=== PATIENT | female | born 1980 | race Caucasian/White ===

== ENCOUNTER 2017-02-05 14:07 | Emergency (ER) | payer OTHER ==
[~2017-02-05] VITALS: Wt 90.0 kg
[~2017-02-05 14:07] MED LIST: ALPR0.5T PO; BUPR-34 PO; FERR-55 PO; HYDR-1666 PO; QUET100T PO
[2017-02-05] MEDS ORDERED: ALPRAZOLAM 1 MG TAB PO STA (15:02)
--- NOTE | 2017-02-05 15:12 | ERD ---
ER Documentation Chief Complaint Date/Time DATE: 02/05/17 TIME: 15:08 Chief Complaint NUMBNESS AND TINGLING FROM ANXIETY. HX OF SAME NOT BETTER WITH MEDICATIONS HPI This is a 36 year old female with history of anxiety presenting to the emergency department bringing her son in for a cough complaining of anxiety exacerbation. Patient states that she has been seeing her primary care physician for anxiety in which they have placed her on Paxil 2 months ago. Patient states that she took Xanax 1 mg 3 times a day however they reduced her dose to 2 times a day. Patient states that she is having anxiety symptoms, numbness tingling of her hands and feet. Patient presents with her son who has been admitted to the hospital earlier this month and that is why she is also expressing anxiety. ROS All systems reviewed and are negative except as per history of present illness. Medications Home Meds Reported Medications Ferrous Sulfate* (Ferrous Sulfate*) 325 Mg Tablet, 325 MG PO DAILY 12/06/12 Hydrocodone Bit/Acetaminophen (Vicodin 5/500 Tablet) 1 Tab Tablet, PO DAILY 12/03/12 Quetiapine Fumarate* (Seroquel*) 100 Mg Tablet, PO HS 12/03/12 Bupropion Hcl* (Wellbutrin SR*) 150 Mg Tablet.sa, PO DAILY 12/03/12 Alprazolam* (Xanax*) 0.5 Mg Tab, PO BID 12/03/12 Allergies Allergies: Coded Allergies: hydromorphone HCl (Verified Allergy, HIVES, 12/06/12) ketorolac tromethamine (Verified Allergy, 12/03/12) itch meperidine HCl (Verified Allergy, 12/03/12) hives morphine (Verified Allergy, 12/03/12) itch sumatriptan (Verified Allergy, 12/03/12) itch tramadol HCl (Verified Allergy, HIVES, 12/06/12) PMhx/Soc History of Surgery: Yes (GASTRIC BYPASS) Anesthesia Reaction: No Hx Neurological Disorder: No Hx Respiratory Disorders: No Hx Cardiac Disorders: No Hx Psychiatric Problems: No Hx Miscellaneous Medical Probl: No Hx Alcohol Use: No Hx Substance Use: No Hx Tobacco Use: No Physical Exam Vitals Vital Signs Date Time Temp Pulse Resp B/P Pulse Ox O2 Delivery O2 Flow Rate FiO2 02/05/17 14:15 98.1 112 20 142/98 99 Physical Exam Const: Well-developed well-nourished no acute distress Head: Atraumatic Eyes: Normal Conjunctiva ENT: Normal External Ears, Nose and Mouth. Neck: Full range of motion..~ No meningismus. Resp: Clear to auscultation bilaterally Cardio: Regular rate and tachycardia, no murmurs Abd: Soft, non tender, non distended. Normal bowel sounds Skin: No petechiae or rashes Back: No midline or flank tenderness Ext: No cyanosis, or edema Neur: Awake and alert Psych: Normal Mood and Affect Results 24 hrs Current Medications Medications (Trade) Dose Ordered Sig/Kavitha Route PRN Reason Start Time Stop Time Status Last Admin Dose Admin Alprazolam (Xanax) 1 mg ONCE STAT PO 02/05/17 15:02 02/05/17 15:03 DC Procedures/MDM This is a 36 year old female with history of anxiety presenting to the emergency department bringing her son in for a cough complaining of anxiety exacerbation. Patient states that she has been seeing her primary care physician for anxiety in which they have placed her on Paxil 2 months ago. Patient states that she took Xanax 1 mg 3 times a day however they reduced her dose to 2 times a day. Patient presents with her son who has been admitted to the hospital earlier this month and that is why she is expressing anxiety. In the ed, patient was given 1mg Xanax and was feeling better in symptoms. Patient is suitable to continue to follow-up with her primary care physician and psychiatrist for further action management. Patient has stable vital signs and neurovascular intact for discharge. Discussed return to the ER for any worsening symptoms she understands and agrees with this plan. Departure Diagnosis: Primary Impression: Anxiety Condition: Stable Patient Instructions: Your Body's Response to Anxiety Referrals: CINTHYA SHRESTHA (PCP) Additional Instructions: FOLLOW UP WITH YOUR PRIMARY CARE PHYSICIAN TOMORROW.Return to this facility if you are not improving as expected. Take all medicines as directed. Return to this facility if you are not improving as expected. FRANCIE ESPINOSA PA-C Feb 05, 2017 15:11
[2017-02-05 16:24] VITALS: BP 133/68; PULSE 77; RESP 18
== END 2017-02-05 16:26 | disposition home or self-care (01) ==
LOC: FTE 14:07
DX: F41.9 Anxiety disorder, unspecified (principal)
CPT/HCPCS: Z7502; Z7610; 99283

== ENCOUNTER 2017-02-07 17:17 | Emergency (ER) | payer OTHER ==
[~2017-02-07] VITALS: Ht 152.4 cm; Wt 93.0 kg
[2017-02-07 17:20] VITALS: Ht 152.4 cm; Wt 93.0 kg
[2017-02-07] MEDS ORDERED: AMO500 PO (17:32)
[2017-02-07] MEDS ORDERED: HYDR-906 PO ×2 (17:32→17:38)
--- NOTE | 2017-02-07 17:56 | ERD ---
ER Documentation Chief Complaint Date/Time DATE: 02/07/17 TIME: 17:51 Chief Complaint 810 left side lower tooth pain x today HPI This is a 36-year-old female presenting to the emergency department complaining of dental pain in the left lower molar region since the day when her crown broke off a piece of her tooth. Patient states that she has called the dentist however they will be able to see her until and have told her to come to the emergency department. Patient states that pain is 10 out of 10 and worse with air. She has not taken any medications today. She denies any fevers. ROS All systems reviewed and are negative except as per history of present illness. Medications Home Meds Active Scripts Hydrocodone/Acetaminophen ([place]heim 5-325 Tablet) 1 Each Tablet, 1-2 TAB PO Q4 Y for PAIN, #30 TAB Prov:FRANCIE ESPINOSA PA-C 02/07/17 Amoxicillin* (Amoxicillin*) 500 Mg Cap, 500 MG PO BID for 10 Days, CAP Prov:FRANCIE ESPINOSA PA-C 02/07/17 Reported Medications Ferrous Sulfate* (Ferrous Sulfate*) 325 Mg Tablet, 325 MG PO DAILY 12/06/12 Hydrocodone Bit/Acetaminophen (Vicodin 5/500 Tablet) 1 Tab Tablet, PO DAILY 12/03/12 Quetiapine Fumarate* (Seroquel*) 100 Mg Tablet, PO HS 12/03/12 Bupropion Hcl* (Wellbutrin SR*) 150 Mg Tablet.sa, PO DAILY 12/03/12 Alprazolam* (Xanax*) 0.5 Mg Tab, PO BID 12/03/12 Allergies Allergies: Coded Allergies: hydromorphone HCl (Verified Allergy, HIVES, 12/06/12) ketorolac tromethamine (Verified Allergy, 12/03/12) itch meperidine HCl (Verified Allergy, 12/03/12) hives morphine (Verified Allergy, 12/03/12) itch sumatriptan (Verified Allergy, 12/03/12) itch tramadol HCl (Verified Allergy, HIVES, 12/06/12) PMhx/Soc History of Surgery: Yes (GASTRIC BYPASS) Anesthesia Reaction: No Hx Neurological Disorder: No Hx Respiratory Disorders: No Hx Cardiac Disorders: No Hx Psychiatric Problems: No Hx Miscellaneous Medical Probl: No Hx Alcohol Use: No Hx Substance Use: No Hx Tobacco Use: No Physical Exam Vitals Vital Signs Date Time Temp Pulse Resp B/P Pulse Ox O2 Delivery O2 Flow Rate FiO2 02/07/17 17:20 97.7 117 18 129/95 97 Physical Exam Const: Well-developed well-nourished no acute distress Head: Atraumatic Eyes: Normal Conjunctiva ENT: Second or third molar has a vertical fracture through the crown and root Neck: Full range of motion..~ No meningismus. Resp: Clear to auscultation bilaterally Cardio: Regular rate and rhythm, no murmurs Abd: Soft, non tender, non distended. Normal bowel sounds Skin: No petechiae or rashes Back: No midline or flank tenderness Ext: No cyanosis, or edema Neur: Awake and alert Psych: Normal Mood and Affect Procedures/MDM This is a 36-year-old female presenting to the emergency room with dental pain in the #17 or 16 left lower molar likely due to a tooth fracture through the root from a broken crown. There was no evidence of any dental abscess or deep space infection at this time. Patient is suitable for discharge to follow-up with the dentist in the next couple days. Patient will need a tooth extraction with her dentist. Patient was given a prescription for [place]heim for pain and amoxicillin to prevent any infection. I discussed with her to get dental cement [id number] at the pharmacy protected to until she is able to follow -up with her dentist. Patient has stable vital signs for discharge. Discussed return to the ER for any worsening signs or symptoms. She understands and agrees with this plan Departure Diagnosis: Primary Impression: Pain, dental Additional Impression: Broken tooth Condition: Stable Patient Instructions: Dental Pain Referrals: [facility] ([facility] walk in clinic) Additional Instructions: FOLLOW UP WITH YOUR DENTIST TOMORROW.Return to this facility if you are not improving as expected. Take all medicines as directed. Return to this facility if you are not improving as expected. You have been given a medicine which may cause drowsiness.DO NOT DRIVE OR OPERATE DANGEROUS MACHINERY while taking this medicine! FRANCIE ESPINOSA PA-C Feb 07, 2017 17:56
== END 2017-02-07 17:35 | disposition home or self-care (01) ==
LOC: FTE 17:17 → E/R 17:35
DX: K08.89 Other specified disorders of teeth and supporting structures (principal); S02.5XXA Fracture of tooth (traumatic), initial encounter for closed fracture; X58.XXXA Exposure to other specified factors, initial encounter; Y92.9 Unspecified place or not applicable
CPT/HCPCS: 99284

== ENCOUNTER 2017-03-14 07:03 | Emergency (ER) | payer OTHER ==
[~2017-03-14] VITALS: Ht 160 cm; Wt 89.0 kg
[~2017-03-14 07:03] MED LIST changes: +AMO500 PO; +HYDR-906 PO
[2017-03-14 07:05] VITALS: Ht 160 cm; Wt 89.0 kg
[2017-03-14] MEDS ORDERED: BEN25 PO (07:45)
[2017-03-14] MEDS ORDERED: LORA1TAB PO (07:45)
--- NOTE | 2017-03-14 07:45 | ERD ---
ER Documentation Chief Complaint Date/Time DATE: 03/14/17 TIME: 07:37 Chief Complaint baCK PAIN,ANXIETY ON MEDS HPI 36-year-old female who presented emergency department for anxiety. She also added that she has hives and itchiness to her chest. Reports that these hives and itchiness appears whenever she has anxiety and panic attack. Denies headache, loss of consciousness, dizziness, blurry vision, changes in vision, photophobia, facial pain, ear pain, throat pain, difficulty swallowing, neck pain, shoulder pain, chest pain, cough, hemoptysis, abdominal pain, back pain, loss of appetite, nausea, vomiting, hematochezia, diarrhea, constipation, urinary symptoms, , the possibility of being , bladder and bowel incontinences, extremity weakness, extremity tenderness, numbness or tingling sensation, difficulty walking, recent travel, recent exposure to illness, recent antibiotic use in the last 3 months, fever, chills. LMP: Stated that it was 4 months ago. with 3 miscarriages. Allergy: Reviewed. Past medical history of anxiety, lupus, fibromyalgia, depression. Surgical history of tubal ligation. Medication: Tylenol 3, Ativan, Xanax. Social history not working at this time. Denies smoking, use of alcohol, use of illegal drugs. ROS All systems reviewed and are negative except as per history of present illness. Medications Home Meds Active Scripts Diphenhydramine Hcl* (Benadryl*) 25 Mg Cap, 25 MG PO Q6, #30 CAP Prov:PASILABAN,KLAR F 03/14/17 Lorazepam* (Lorazepam*) 1 Mg Tablet, 1 MG PO Q8, #10 TAB Prov:PASILABAN,KLAR F 03/14/17 Hydrocodone/Acetaminophen (Wells 5-325 Tablet) 1 Each Tablet, 1-2 TAB PO Q4 Y for PAIN, #30 TAB Prov:FRANCIE ESPINOSA PA-C 02/07/17 Amoxicillin* (Amoxicillin*) 500 Mg Cap, 500 MG PO BID for 10 Days, CAP Prov:FRANCIE ESPINOSA PA-C 02/07/17 Reported Medications Ferrous Sulfate* (Ferrous Sulfate*) 325 Mg Tablet, 325 MG PO DAILY 12/06/12 Hydrocodone Bit/Acetaminophen (Vicodin 5/500 Tablet) 1 Tab Tablet, PO DAILY 12/03/12 Quetiapine Fumarate* (Seroquel*) 100 Mg Tablet, PO HS 12/03/12 Bupropion Hcl* (Wellbutrin SR*) 150 Mg Tablet.sa, PO DAILY 12/03/12 Alprazolam* (Xanax*) 0.5 Mg Tab, PO BID 12/03/12 Allergies Allergies: Coded Allergies: hydromorphone HCl (Verified Allergy, HIVES, 12/06/12) ketorolac tromethamine (Verified Allergy, 12/03/12) itch meperidine HCl (Verified Allergy, 12/03/12) hives morphine (Verified Allergy, 12/03/12) itch sumatriptan (Verified Allergy, 12/03/12) itch tramadol HCl (Verified Allergy, HIVES, 12/06/12) PMhx/Soc History of Surgery: Yes (GASTRIC BYPASS) Anesthesia Reaction: No Hx Neurological Disorder: No Hx Respiratory Disorders: No Hx Cardiac Disorders: No Hx Psychiatric Problems: No Hx Miscellaneous Medical Probl: No Hx Alcohol Use: No Hx Substance Use: No Hx Tobacco Use: No Physical Exam Vitals Vital Signs Date Time Temp Pulse Resp B/P Pulse Ox O2 Delivery O2 Flow Rate FiO2 03/14/17 07:05 98.1 89 18 149/89 99 Physical Exam CONSTITUTIONAL: Well-appearing; well-nourished. Appears anxious. HEAD: Normocephalic; atraumatic. EYES: Conjunctiva clear, sclera non-icteric, EOM intact. PERRL Ears: Hearing intact. EACs clear, TMs non-bulging, non-inflamed, translucent & mobile, ossicles normal appearance, No obstructions, no erythema, no discharges Nose: No obstructions. No polyps. No external lesions. Mucosa non-inflamed. No external lesions, septum and turbinates normal. No rhinorrhea. No discharges. Frontal sinus is non-tender to palpation. Maxillary sinus is non-tender to palpation. MOUTH: Moist mucous membranes, no lesion, no obstructions, no vesicles, no thrush, patent airway Throat: Uvula in midline. Right tonsil is +1 with no erythema, no exudate. Left tonsil is +1 with no erythema, no exudate. Tolerating secretions well. Good gag reflex. Patent airway. Neck: Supple, without lesions, bruits, or adenopathy. No mass. Thyroid non- enlarged and non-tender to palpation. CHEST: Symmetrical chest. Respirations even and not labored. No retractions noted. CARDIOVASCULAR: Normal S1, S2. RRR. No murmurs, gallops. RESPIRATORY: Normal chest excursion with respiration; breath sounds clear and equal bilaterally; no wheezes, rhonchi, or rales. Breathing even and unlabored. Speaking in clear, full, and complete sentences w/ ease. ABDOMEN: Normal bowel sounds normal. Soft, round, non-distended, non-guarding, no tenderness, no rebound, no organomegaly, no masses, no pulsating abdominal mass. No hernia. No peritoneal signs. : No CVA tenderness. BACK: Symmetrical shoulder. Spine is midline without deformity, tenderness. No evidence of trauma or deformity. PELVIS: Stable pelvis. No evidence of trauma or deformity. MUSCULOSKELETAL: Normal gait and station. No misalignment, asymmetry, crepitation, defects, tenderness, masses, effusions, decreased range of motion, instability, atrophy or abnormal strength or tone in the head, neck, spine, ribs , pelvis or extremities. No calf tenderness. NEUROVASCULAR: Distal pulses are present. Pedal pulse are present, equal, and normal. Capillary refills are < 2 seconds. NEUROLOGIC: Alert and oriented x4. Speaks full and clear sentences. Cranial Nerves II-XII normal. Sensation to pain, touch, and proprioception normal. Grossly unremarkable. No neurologic deficits. Romberg test is negative. PSYCHOLOGICAL: The patients mood and manner are appropriate. No hallucinations , delusions. Not SI. Not HI. Has the capacity to decide for self SKIN: Normal for age and ethnicity; warm; dry; good turgor; no apparent lesions or exudates. No rashes. Noted hives (patient stated that these hives is itchy and it disappears whenever she is anxious) to chest. Results 24 hrs Current Medications Medications (Trade) Dose Ordered Sig/Kavitha Route PRN Reason Start Time Stop Time Status Last Admin Dose Admin Diphenhydramine HCl (Benadryl) 25 mg ONCE ONCE IM 03/14/17 08:00 03/14/17 08:01 DC 03/14/17 07:50 Lorazepam (Ativan) 2 mg ONCE ONCE PO 03/14/17 08:00 03/14/17 08:01 DC 03/14/17 07:50 Procedures/MDM Examination: Please see physical examination Disease process, medical treatment was explained to the patient and family member. They verbalized understanding and agreed with the diagnostic tests, medical treatment, and follow-up care. Treatment: Benadryl. Ativan. Re-evaluation: Denies headache, dizziness, blurred vision, neck pain, shoulder pain, chest pain, back pain, abdominal pain, nausea, vomiting. Tolerating secretions. No difficulty swallowing. No episode of emesis in the emergency department. Hives to chest area has disappeared. Respirations even and unlabored. Lung sounds decreased auscultation. No neurological deficit. Not suicidal. Not homicidal. Has the capacity to decide for herself. Reports that she has good support system at home. Consultation: None. Differential diagnosis: Anxiety versus allergic reaction Medical decision makin-year-old female who presented emergency department for anxiety. She also added that she has hives and itchiness to her chest. Reports that these hives and itchiness appears whenever she has anxiety and panic attack. Patient's complaint, patient's history about her complaint, my physical findings, my reevaluation are consistent with my final diagnosis of anxiety that has resolved. Medications prescribed are the following: Ativan. Benadryl. Patient and family member are made aware of the side effects and adverse reactions of the medications prescribed. Instructed on when to seek emergent and medical attention in case allergic/anaphylactic reactions or severe side effects and or adverse reactions to medications. Patient and family member verbalized understanding. Patient instructed Instructed to follow-up with his PCP in 24-48 hours. Instructed to Call 911 for chest pain, shortness of breath. Advised to come back here in ED as soon as possible for severity of symptoms which includes but not limited to: any new symptoms; shortness of breath/difficulty of breathing; cardiovascular changes; severe gastrointestinal symptoms; signs and symptoms of bleeding and or infection; signs of compartment syndrome/neurovascular changes; neurological changes/deficits. Patient and family member verbalized understanding. Upon discharge, patient is alert and oriented x 4, speaks full and clear sentences, denies pain, has no neurological deficits, has no neurovascular deficits, difficulty of breathing. Breathing even and unlabored. Lung sounds are clear to auscultation. Not in distress. Denies auditory/visual hallucinations/delusions. Not suicidal. Not homicidal. Has the capacity to decide for herself. Stated that she has good support system at home. Appears comfortable. Ambulatory with steady gait. Appears satisfied with care provided here in ED. Departure Diagnosis: Primary Impression: Anxiety Condition: Stable Additional Instructions: Patient instructed Instructed to follow-up with his PCP in 24-48 hours. Instructed to Call 911 for chest pain, shortness of breath. Advised to come back here in ED as soon as possible for severity of symptoms which includes but not limited to: any new symptoms; shortness of breath/difficulty of breathing; cardiovascular changes; severe gastrointestinal symptoms; signs and symptoms of bleeding and or infection; signs of compartment syndrome/neurovascular changes; neurological changes/deficits. Patient and family member verbalized understanding. DILCIA KELLY March 14, 2017 07:45
[2017-03-14] MEDS ORDERED: DIPHENHYDRAMINE 50 MG INJ IM ONE (08:00)
[2017-03-14] MEDS ORDERED: LORAZEPAM 1 MG TAB PO ONE (08:00)
[2017-03-14] MEDS ORDERED: IBUP800T25 PO (22:16)
[2017-03-14] MEDS ORDERED: CYCL-319 PO (22:16)
== END 2017-03-14 08:22 | disposition home or self-care (01) ==
LOC: FTE 07:03
DX: F41.9 Anxiety disorder, unspecified (principal)
CPT/HCPCS: 96372; J1200; Z7502; Z7610

== ENCOUNTER 2017-03-14 18:55 | Emergency (ER) | payer OTHER ==
[~2017-03-14] VITALS: Ht 152.4 cm; Wt 91.5 kg
[~2017-03-14 18:55] MED LIST changes: +BEN25 PO; +LORA1TAB PO
[2017-03-14 19:12] VITALS: Ht 152.4 cm; Wt 91.5 kg
[2017-03-14] MEDS ORDERED: BUPIVACAINE 0.25% (MPF) 10 ML 10 ML VIAL INJ ONE (20:00)
[2017-03-14] MEDS ORDERED: HYDROCODONE/APAP (5/325) TAB PO ONE ×2 (20:00→23:00)
[2017-03-14] MEDS ORDERED: IBUP800T25 PO (22:16)
[2017-03-14] MEDS ORDERED: CYCL-319 PO (22:16)
[2017-03-14 22:48] VITALS: BP 134/89; PULSE 113; RESP 16; TEMP 98.2
--- NOTE | 2017-03-15 01:51 | ERD ---
ER Documentation Chief Complaint Date/Time DATE: 03/15/17 TIME: 01:44 Chief Complaint Back pain x2 days. Came in last 2 days ago HPI 36-year-old female is complaining of right lower back pain 2 days. Pain is sharp and constant, does not radiate. Patient stated that she has fibromyalgia and lupus, she had pain like this in the past, usually better after taking Paxton. Her PCP has recently switch her pain medication from Paxton to Tylenol No. 3, and he had not helped. Denies recent injury or falls. Denies fever or chills. Denies saddle paresthesia. Denies bowel or bladder dysfunction. ROS All systems reviewed and are negative except as per history of present illness. Medications Home Meds Active Scripts Cyclobenzaprine Hcl* (Cyclobenzaprine Hcl*) 10 Mg Tablet, 10 MG PO TID, #15 TAB Prov:FRANCISCO CAMPBELL. REAL ESTATE DEVELOPMENT MANAGER 03/14/17 Ibuprofen* (Motrin*) 800 Mg Tab, 800 MG PO Q6H Y for PAIN AND OR ELEVATED TEMP, #30 TAB Prov:FRANCISCO CAMPBELL. [employer]STATE DEVELOPMENT MANAGER 03/14/17 Diphenhydramine Hcl* (Benadryl*) 25 Mg Cap, 25 MG PO Q6, #30 CAP Prov:PASILABANEDIAR F 03/14/17 Lorazepam* (Lorazepam*) 1 Mg Tablet, 1 MG PO Q8, #10 TAB Prov:PASILABAN,KLAR F 03/14/17 Hydrocodone/Acetaminophen (Paxton 5-325 Tablet) 1 Each Tablet, 1-2 TAB PO Q4 Y for PAIN, #30 TAB Prov:FRANCIE ESPINOSA PA-C 02/07/17 Amoxicillin* (Amoxicillin*) 500 Mg Cap, 500 MG PO BID for 10 Days, CAP Prov:FRANCIE ESPINOSA PA-C 02/07/17 Reported Medications Ferrous Sulfate* (Ferrous Sulfate*) 325 Mg Tablet, 325 MG PO DAILY 12/06/12 Hydrocodone Bit/Acetaminophen (Vicodin 5/500 Tablet) 1 Tab Tablet, PO DAILY 12/03/12 Quetiapine Fumarate* (Seroquel*) 100 Mg Tablet, PO HS 12/03/12 Bupropion Hcl* (Wellbutrin SR*) 150 Mg Tablet.sa, PO DAILY 12/03/12 Alprazolam* (Xanax*) 0.5 Mg Tab, PO BID 12/03/12 Allergies Allergies: Coded Allergies: hydromorphone HCl (Verified Allergy, Unknown, HIVES, 03/14/17) ketorolac tromethamine (Verified Allergy, Unknown, 03/14/17) itch meperidine HCl (Verified Allergy, Unknown, 03/14/17) hives morphine (Verified Allergy, Unknown, 03/14/17) itch sumatriptan (Verified Allergy, Unknown, 03/14/17) itch tramadol HCl (Verified Allergy, Unknown, HIVES, 03/14/17) PMhx/Soc Medical and Surgical Hx: pt denies Medical Hx History of Surgery: Yes (GASTRIC BYPASS) Anesthesia Reaction: No Hx Neurological Disorder: No Hx Respiratory Disorders: No Hx Cardiac Disorders: No Hx Psychiatric Problems: No Hx Miscellaneous Medical Probl: No Hx Alcohol Use: No Hx Substance Use: No Hx Tobacco Use: No Smoking Status: Never smoker Physical Exam Vitals Vital Signs Date Time Temp Pulse Resp B/P Pulse Ox O2 Delivery O2 Flow Rate FiO2 03/14/17 22:48 98.2 113 16 134/89 97 Room Air 03/14/17 19:12 99.1 118 20 124/81 96 Physical Exam General: Well-developed, well-nourished, conscious and coherent, in no distress Skin: Warm and dry without rash, good texture and turgor Head: Normocephalic without evidence of trauma Eyes: Sclera and conjunctivae normal; pupils equal, round, and reactive to light; extraocular movements are intact Neck: Supple without meningismus or adenopathy. Carotids are equal. Trachea midline. No bruits or JVD Chest: Normal AP diameter. Good expansion without retractions. Nontender. Lungs are clear to auscultate bilaterally with good tidal volume Heart: Regular rate and rhythm. No murmur, rub, or gallops heard Abdomen: Soft and nontender without masses, guarding, or rebound. Bowel sounds are active. No hepatosplenomegaly Back: Without spinal or CVA tenderness. Muscle spasm noted in the right lumbar region. Pelvis: Nontender to palpation and stable to compression Extremities: Full range of motion. Good strength bilaterally. No clubbing, cyanosis, or edema. Peripheral pulses are intact. Sensation intact Neuro: Alert and oriented 4, GCS 15. Cranial nerves grossly intact. Motor and sensory exams nonfocal. Moves all extremities. Speech clear. Gait normal. No saddle paresthesia. Results 24 hrs Current Medications Medications (Trade) Dose Ordered Sig/Kavitha Route PRN Reason Start Time Stop Time Status Last Admin Dose Admin Bupivacaine HCl (Marcaine 0.25% (Mpf) 10 ml) 10 ml ONCE ONCE INJ 03/14/17 20:00 03/14/17 20:01 DC Acetaminophen/ Hydrocodone Bitart (Paxton (5/325)) 1 tab ONCE ONCE PO 03/14/17 20:00 03/14/17 20:01 DC 03/14/17 20:07 Acetaminophen/ Hydrocodone Bitart (Paxton (5/325)) 1 tab ONCE ONCE PO 03/14/17 23:00 03/14/17 23:00 DC 03/14/17 22:44 Procedures/MDM Well-appearing 36-year-old female presented ED with right lower back pain 2 days. Paxton 5/325 given to the patient in the ED for pain. In addition, patient was also given trigger point injection in the site of muscle spasm. Patient complaining of no improvement after trigger point injection, requesting additional Paxton. Another dose of Paxton 5/325 given to the patient. Patient initially requests prescription of Paxton. I explained to the patient cannot provide her with Paxton prescription as her pain is chronic in nature. She will need to follow-up with her PCP for prescription of chronic pain medications. Patient is pleasant and agreeable. However her frequent requests of pain medication is somewhat suspicious for narcotic seeking. Procedure note: Trigger point injection Trigger point injection performed by me. 10 mL of bupivacaine is injected into right lumbar region. Total number muscle groups injected: 1. Patient appears well, stable for discharge and outpatient management. Medical decision making shared with patient and family. Education provided to patient and family. Patient and family expressed understanding of the plan. Medications on discharge: Ibuprofen, Flexeril. Follow-up: Primary care provider in 2-3 days or return to ED if worse. Departure Diagnosis: Primary Impression: Back spasm Condition: Good Patient Instructions: Back Spasm, No Trauma Additional Instructions: Call your primary care doctor TOMORROW for an appointment during the next 2-3 days.See the doctor sooner or return here if your condition worsens before your appointment time. FRANCISCO CAMPBELL NP March 15, 2017 01:51
== END 2017-03-14 22:50 | disposition home or self-care (01) ==
LOC: FTE 18:55
DX: M62.830 Muscle spasm of back (principal)
CPT/HCPCS: 20552; Z7610

== ENCOUNTER 2017-08-03 09:49 | Emergency (ER) | payer OTHER ==
[~2017-08-03] VITALS: Ht 157.5 cm; Wt 78.0 kg
[~2017-08-03 09:49] MED LIST changes: -AMO500 PO; +AMOX500C2 PO; +CYCL-319 PO; +IBUP800T25 PO
[2017-08-03 09:51] VITALS: Ht 157.5 cm; Wt 78.0 kg
--- NOTE | 2017-08-03 10:58 | ERD ---
ER Documentation Chief Complaint Date/Time DATE: 08/03/17 TIME: 10:49 Chief Complaint reported flair of fibromyalgia, has leg pains HPI 36-year-old female with history of fibromyalgia presents to the emergency department with her complaining of 5 days of worsening of the symptoms, described as pins and needles on bilateral soles with a warmth sensation. The patient is status that she has been under a lot of stress because she was forced to move about from the current place and believes that this anxiety is causing a flare up of her fibromyalgia. She is currently their primary care provider management, her next appointment is in 2 weeks.Denies fever chills or any other constitutional symptoms. No recent history of traveling the patient is not taking hormonal replacement therapy. No weakness no rashes ROS All systems reviewed and are negative except as per history of present illness. Medications Home Meds Active Scripts Hydrocodone/Acetaminophen ([place] 5-325 Tablet) 1 Each Tablet, 1 TAB PO Q6H Y for PAIN for 4 Days, #16 TAB Prov:CELINA MICHAEL MD 08/03/17 Cyclobenzaprine Hcl* (Cyclobenzaprine Hcl*) 10 Mg Tablet, 10 MG PO TID, #15 TAB Prov:FRANCISCO CAMPBELL. FAMILY NURSE 03/14/17 Ibuprofen* (Motrin*) 800 Mg Tab, 800 MG PO Q6H Y for PAIN AND OR ELEVATED TEMP, #30 TAB Prov:FRANCISCO CAMPBELL. FAMILY NURSE 03/14/17 Diphenhydramine Hcl* (Benadryl*) 25 Mg Cap, 25 MG PO Q6, #30 CAP Prov:PASILABANEDIAR F 03/14/17 Lorazepam* (Lorazepam*) 1 Mg Tablet, 1 MG PO Q8, #10 TAB Prov:ALLAILAEDI LEZAMAAR F 03/14/17 Hydrocodone/Acetaminophen ([place] 5-325 Tablet) 1 Each Tablet, 1-2 TAB PO Q4 Y for PAIN, #30 TAB Prov:FRANCIE ESPINOSA PA-C 02/07/17 Amoxicillin* (Amoxicillin*) 500 Mg Cap, 500 MG PO BID for 10 Days, CAP Prov:FRANCIE ESPINOSA PA-C 02/07/17 Reported Medications Ferrous Sulfate* (Ferrous Sulfate*) 325 Mg Tablet, 325 MG PO DAILY 12/06/12 Hydrocodone Bit/Acetaminophen ([place] 5/500 Tablet) 1 Tab Tablet, PO DAILY 12/03/12 Quetiapine Fumarate* (Seroquel*) 100 Mg Tablet, PO HS 12/03/12 Bupropion Hcl* (Wellbutrin SR*) 150 Mg Tablet.sa, PO DAILY 12/03/12 Alprazolam* (Xanax*) 0.5 Mg Tab, PO BID 12/03/12 Allergies Allergies: Coded Allergies: hydromorphone HCl (Verified Allergy, Unknown, HIVES, 03/14/17) ketorolac tromethamine (Verified Allergy, Unknown, 03/14/17) itch meperidine HCl (Verified Allergy, Unknown, 03/14/17) hives morphine (Verified Allergy, Unknown, 03/14/17) itch sumatriptan (Verified Allergy, Unknown, 03/14/17) itch tramadol HCl (Verified Allergy, Unknown, HIVES, 03/14/17) PMhx/Soc History of Surgery: Yes (GASTRIC BYPASS) Anesthesia Reaction: No Hx Neurological Disorder: Yes (NEUROPATHY) Hx Respiratory Disorders: No Hx Cardiac Disorders: No Hx Psychiatric Problems: Yes (ANXIETY) Hx Miscellaneous Medical Probl: Yes (FIBROMYALGIA) Hx Alcohol Use: No Hx Substance Use: No Hx Tobacco Use: No Smoking Status: Never smoker Physical Exam Vitals Vital Signs Date Time Temp Pulse Resp B/P Pulse Ox O2 Delivery O2 Flow Rate FiO2 08/03/17 09:51 98.0 90 18 142/90 99 Physical Exam Const: [] Head: Atraumatic Eyes: Normal Conjunctiva ENT: Normal External Ears, Nose and Mouth. Neck: Full range of motion..~ No meningismus. Resp: Clear to auscultation bilaterally Cardio: Regular rate and rhythm, no murmurs Abd: Soft, non tender, non distended. Normal bowel sounds Skin: No petechiae or rashes Back: No midline or flank tenderness Ext: No cyanosis, or edema, No calf tenderness, positive bilateral pedal pulses Procedures/MDM Acute bilateral leg pain: Differential includes radicular pain, neuropathic pain , DVT, cellulitis. Most likely neuropathic pain and worsening of fibromyalgia, low suspicion for DVT or acute infectious process Departure Diagnosis: Primary Impression: Neuropathic pain of both feet Additional Impressions: Anxiety as acute reaction to exceptional stress Fibromyalgia Condition: Stable FERMIN-ÁLVAREZ,CELINA MD Aug 03, 2017 10:57
[2017-08-03] MEDS ORDERED: HYDR-906 PO (11:00)
== END 2017-08-03 11:08 | disposition home or self-care (01) ==
LOC: FTE 09:49
DX: G62.9 Polyneuropathy, unspecified (principal); F43.0 Acute stress reaction; M79.7 Fibromyalgia
CPT/HCPCS: 99283

== ENCOUNTER 2017-08-14 19:16 | Emergency (ER) | payer OTHER ==
[~2017-08-14] VITALS: Ht 152.4 cm; Wt 88.0 kg
[2017-08-14 19:27] VITALS: Ht 152.4 cm; Wt 88.0 kg
[2017-08-14] MEDS ORDERED: LORAZEPAM 1 MG TAB PO ONE (21:00)
--- NOTE | 2017-08-14 23:26 | ERD ---
ER Documentation Chief Complaint Chief Complaint bib self, cc: breakthrough anxiety, ativan taken in the morning HPI This patient is a 36-year-old female with past medical history of fibromyalgia, anxiety, and depression currently taking gabapentin, Ativan, Paxil presenting to the emergency department with complaints of numbness and tingling in her bilateral upper and lower extremities and feeling anxious. She states she took Ativan this morning but has continued to have anxiety all day. She denies homicidal or suicidal ideation. She denies other symptoms at this time. ROS All systems reviewed and are negative except as per history of present illness. Medications Home Meds Active Scripts Hydrocodone/Acetaminophen ([place] 5-325 Tablet) 1 Each Tablet, 1 TAB PO Q6H Y for PAIN for 4 Days, #16 TAB Prov:CELINA MICHAEL MD 08/03/17 Cyclobenzaprine Hcl* (Cyclobenzaprine Hcl*) 10 Mg Tablet, 10 MG PO TID, #15 TAB Prov:FRANCISCO CAMPBELL. COREMAKER EXPERIMENTAL 03/14/17 Ibuprofen* (Motrin*) 800 Mg Tab, 800 MG PO Q6H Y for PAIN AND OR ELEVATED TEMP, #30 TAB Prov:FRANCISCO CAMPBELL. COREMAKER EXPERIMENTAL 03/14/17 Diphenhydramine Hcl* (Benadryl*) 25 Mg Cap, 25 MG PO Q6, #30 CAP Prov:PASILABANKLAR F 03/14/17 Lorazepam* (Lorazepam*) 1 Mg Tablet, 1 MG PO Q8, #10 TAB Prov:PASILABANEDIAR F 03/14/17 Hydrocodone/Acetaminophen ([place] 5-325 Tablet) 1 Each Tablet, 1-2 TAB PO Q4 Y for PAIN, #30 TAB Prov:FRANCIE ESPINOSA PA-C 02/07/17 Amoxicillin* (Amoxicillin*) 500 Mg Cap, 500 MG PO BID for 10 Days, CAP Prov:FRANCIE ESPINOSA PA-C 02/07/17 Reported Medications Ferrous Sulfate* (Ferrous Sulfate*) 325 Mg Tablet, 325 MG PO DAILY 12/06/12 Hydrocodone Bit/Acetaminophen (V[place] 5/500 Tablet) 1 Tab Tablet, PO DAILY 12/03/12 Quetiapine Fumarate* (Seroquel*) 100 Mg Tablet, PO HS 12/03/12 Bupropion Hcl* (Wellbutrin SR*) 150 Mg Tablet.sa, PO DAILY 12/03/12 Alprazolam* (Xanax*) 0.5 Mg Tab, PO BID 12/03/12 Allergies Allergies: Coded Allergies: hydromorphone HCl (Verified Allergy, Unknown, HIVES, 03/14/17) ketorolac tromethamine (Verified Allergy, Unknown, 03/14/17) itch meperidine HCl (Verified Allergy, Unknown, 03/14/17) hives morphine (Verified Allergy, Unknown, 03/14/17) itch sumatriptan (Verified Allergy, Unknown, 03/14/17) itch tramadol HCl (Verified Allergy, Unknown, HIVES, 03/14/17) PMhx/Soc History of Surgery: Yes (GASTRIC BYPASS) Anesthesia Reaction: No Hx Neurological Disorder: Yes (NEUROPATHY) Hx Respiratory Disorders: No Hx Cardiac Disorders: No Hx Psychiatric Problems: Yes (ANXIETY) Hx Miscellaneous Medical Probl: Yes (FIBROMYALGIA) Hx Alcohol Use: No Hx Substance Use: No Hx Tobacco Use: No Smoking Status: Never smoker Physical Exam Vitals Vital Signs Date Time Temp Pulse Resp B/P Pulse Ox O2 Delivery O2 Flow Rate FiO2 08/14/17 19:27 98.3 107 18 163/101 100 Physical Exam Const: Nontoxic, well-appearing female. Mildly anxious. Head: Atraumatic Eyes: Normal Conjunctiva ENT: Normal External Ears, Nose and Mouth. Neck: Full range of motion..~ No meningismus. Resp: Clear to auscultation bilaterally Cardio: Regular rate and rhythm, no murmurs Skin: No petechiae or rashes Back: No midline or flank tenderness Ext: No cyanosis, or edema Neur: Awake and alert Psych: Normal Mood and Affect. Denies homicidal or suicidal ideation. Results 24 hrs Current Medications Medications (Trade) Dose Ordered Sig/Kavitha Route PRN Reason Start Time Stop Time Status Last Admin Dose Admin Lorazepam (Ativan) 1 mg ONCE ONCE PO 08/14/17 21:00 08/14/17 21:01 DC 08/14/17 20:51 Procedures/MDM 36-year-old female presenting to the emergency department with complaints of anxiety. She was given Ativan in the department. The patient adamantly denies any homicidal or suicidal ideation. I had a long discussion with the patient regarding nonmedical ways to calm anxiety at home. I Do not feel the patient posed a threat to herself or others. She felt much better after counseling in the department. She states she will follow-up with her psychiatrist and primary care physician within the next week. She may return immediately for any new or worsening symptoms. Departure Diagnosis: Primary Impression: Anxiety reaction Condition: Fair Patient Instructions: Your Body's Response to Anxiety Referrals: CINTHYA SHRESTHA Additional Instructions: Follow up with your PCP within the next 1-3 days for a repeat evaluation. If you require a referral to a specialist, your Primary Care Provider may be able to provide this for you. In most patient cases, a referral is not required. If you have further questions regarding this matter, please ask your Primary Care Provider. Return the the emergency department immediately if symptoms worsen or change. If you have any questions regarding medications, ask your pharmacist or us before you leave. If any adverse reactions, occur while taking your medications, discontinue the treatment and return to the emergency department immediately. If any new or worsening symptoms, uncontrolled fevers, or other unexplained symptoms occur, return to the emergency department immediately. Take your medications as directed, and complete the entire course of treatment. DAYNE BURRIS PA-C Aug 14, 2017 23:26
== END 2017-08-14 20:46 | disposition home or self-care (01) ==
LOC: FTE 19:16
DX: F41.1 Generalized anxiety disorder (principal)
CPT/HCPCS: Z7502; Z7610; 99283